=== PATIENT | female | born 1995 | race Two or more races ===

== ENCOUNTER 2019-04-26 13:36 | Emergency (ER) | payer MEDICAID, SELFPAY ==
[~2019-04-26] VITALS: Ht 160 cm; Wt 111.0 kg
[2019-04-26 13:43] VITALS: BP 117/82
== END 2019-04-26 15:20 | disposition home or self-care (01) ==
LOC: ED 15:00
DX: M65.841 Other synovitis and tenosynovitis, right hand (principal); M25.531 Pain in right wrist; J45.909 Unspecified asthma, uncomplicated
CPT/HCPCS: 29260; 99283